=== PATIENT | female | born 1965 | race Caucasian/White ===

== ENCOUNTER 2020-11-29 06:32 | Day surgery (SDC) | payer OTHER ==
[~2020-11-29 06:32] MED LIST: Lactated Ringers 1,000 ML IV SCH
[2020-11-29] MEDS ORDERED: DIPRIVAN 200 MG/20 ML IV ONE ×2 (08:00→08:23)
[2020-11-29 08:59] VITALS: O2SAT 100
[2020-11-29 09:15] VITALS: BP 154/90; PULSE 65
--- NOTE | 2020-11-29 09:52 | OP ---
SURGERY DATE/TIME: 11/29/2020 0808 PREOPERATIVE DIAGNOSES: 1) Screening colonoscopy. 2) History of colon polyps. POSTOPERATIVE DIAGNOSIS: Normal colon. PROCEDURE: Screening colonoscopy. SURGEON: Ivan Chavez M.D. ANESTHESIA: MAC by Chandrakant Fitzgerald CRNA. ESTIMATED BLOOD LOSS: None. SPECIMENS: None. DESCRIPTION OF PROCEDURE: After informed written consent was obtained, the patient was taken to the endoscopy suite. She was placed in left lateral decubitus position. Anesthesia was titrated to desired level of consciousness. Digital rectal exam showed normal sphincter tone and no internal lesions. The scope was inserted into the rectum and sequentially the entire colonic mucosa was traversed. The level of cecum was reached and verified with direct visualization of ileocecal valve. Upon withdrawal careful mucosal inspection revealed no gross abnormalities. Retroflexion showed no internal lesions. The scope was removed and the patient was transferred to the recovery room in good condition.
== END 2020-11-29 09:25 | disposition home or self-care (01) ==
LOC: SDC 06:32
PROVIDERS: ATTEND Family Medicine
DX: Z12.11 Encounter for screening for malignant neoplasm of colon (principal); Z86.010 Personal history of colon polyps
CPT/HCPCS: J2704

== ENCOUNTER 2021-02-05 19:55 | Emergency (ER) | payer OTHER ==
[2021-02-05 20:07] VITALS: PULSE 84; O2SAT 97
[2021-02-05 20:16] VITALS: BP 139/105
[2021-02-05] MEDS ORDERED: XYLOCAINE 2% HCL 20 ML MDV ONE ×2 (20:27→20:28)
[2021-02-05] MEDS ORDERED: XYLOCAINE 2% HCL 20 ML MDV SUBDERMAL ONE (20:40)
--- NOTE | 2021-02-05 20:45 | ERPHSYRPT ---
- History of Present Illness Time Seen by Provider: 02/05/21 20:00 Source: patient Exam Limitations: no limitations Patient Subjective Stated Complaint: Patient states she was chopping onions and cut middle left finger Triage Nursing Assessment: Patient has 1 cm long, 0.1 depth laceration on middle left finger, active bleeding Physician History: 55 years old right-handed dominant female presented in the ER with chief complaint of left third digit middle phalanx laceration prior to arrival while she was cutting onion. There was bleeding initially but stopped with applying pressure. She is complaining of dull aching pain mild to moderate intensity with movements and better with being still. Up-to-date with immunization/tetanus. No difficulty movements of proximal or distal interphalangeal joint. No numbness or tingling in the fingertip. Occurred: just prior to arrival Method of Injury: incised Quality: dullness Severity of Pain-Max: mild Severity of Pain-Current: mild Extremities Pain Location: 3rd finger: left Modifying Factors: Improves With: immobilization. Worsens With: movement Associated Symptoms: none Allergies/Adverse Reactions: No Known Drug Allergies Allergy (Verified 02/05/21 20:09) Home Medications: ALPRAZolam [Xanax 0.25 mg] 1 tab PO DAILY PRN PRN 02/04/16 [History] Metformin HCl 500 mg [Glucophage 500 MG] 1 tab PO BID 02/04/16 [History] Aspirin EC 81 mg [Ecotrin 81 mg] 81 mg PO DAILY 10/30/20 [History] Multivitamin [One-Daily Multi-Vitamin] 1 each PO DAILY 10/30/20 [History] Hx Tetanus, Diphtheria Vaccination/Date Given: Yes Hx Influenza Vaccination/Date Given: No Hx Pneumococcal Vaccination/Date Given: No Immunizations Up to Date: Yes Travel Risk - International Travel Have you traveled outside of the country in past 3 weeks: No - Coronavirus Screening Are you exhibiting any of the following symptoms?: No Close contact with a COVID-19 positive Pt in past 14-21 Days: No - Vaccine Status Have you recieved a Covid-19 vaccination: Yes Back Joiner: Beam. - Vaccination Dates Date of 2cond Vaccination (if applicable): 12/12 - Review of Systems Constitutional: No Symptoms Ears, Nose, & Throat: No Symptoms Respiratory: No Symptoms Cardiac: No Symptoms Genitourinary Symptoms: No Symptoms Musculoskeletal: Injury Skin: Skin Lesions Neurological: No Symptoms Psychological: No Symptoms Endocrine: No Symptoms - Past Medical History Pertinent Past Medical History: Yes Neurological History: Migraines ENT History: No Pertinent History Cardiac History: Other Respiratory History: No Pertinent History Endocrine Medical History: Other Musculoskeletal History: No Pertinent History GI Medical History: No Pertinent History History: No Pertinent History Psycho-Social History: Anxiety Female Reproductive Disorders: Other Other Medical History: hx htn but not for 5 yrs now, hx svt as high school girl no problem since, mild anxiety takes xanax for it, hx infertility issues and was with quads and had cerclauge prodedure on cervix and then miscarried all. had migraines in high school and college, patient is insulin resistant and is on glucophage for that. - Past Surgical History Past Surgical History: Yes Neuro Surgical History: No Pertinent History Cardiac: No Pertinent History Respiratory: No Pertinent History Gastrointestinal: Cholecystectomy Genitourinary: No Pertinent History Musculoskeletal: No Pertinent History Female Surgical History: Other Other Surgical History: cyst removed from fallopian tubes times 2 times, cerclauge procedure on cervix when with quads then had miscarriage and lost all of the quads, node removed off of vocal cords, - Social History Smoking Status: Never smoker Exposure to second hand smoke: No Drug Use: none Patient Lives Alone: Yes - Female History Hx Now: No - Nursing Vital Signs Nursing Vital Signs: Initial Vital Signs Temperature 97.4 F 02/05/21 20:01 Pulse Rate 84 02/05/21 20:01 Blood Pressure 139/105 02/05/21 20:01 O2 Sat by Pulse Oximetry 97 02/05/21 20:01 Pain Scale Pain Intensity 0 - Physical Exam General Appearance: no apparent distress, alert, anxiety Neck Exam: normal inspection, supple, full range of motion Cardiovascular/Respiratory Exam: normal breath sounds, regular rate/rhythm Elbow/Forearm Exam: normal inspection, no evidence of injury, normal ROM Wrist Exam: normal inspection, no evidence of injury, normal ROM Hand Exam: normal ROM, laceration (1.5 cm middle phalanx lateral aspect superficial with no active spurting or oozing. Intact distal neurovascular), soft tissue tenderness Neuro/Tendon Exam: normal sensation, normal motor functions, normal tendon functions Mental Status Exam: alert, oriented x 3 Skin Exam: normal color SpO2 Interpretation: normal SpO2: 97 O2 Delivery: Room Air Procedures - Laceration/Wound Repair Left Finger Time of Procedure: 20:35 Wound Location: Left Wound Length (cm): 1.5 Wound's Depth, Shape: superficial Wound Explored: clean Irrigated: Yes Hibiclens Prep: Yes Anesthesia: 2% Lidocaine Volume Anesthetic (ccs): 1.5 Wound Repaired With: sutures Suture Size/Type: 4-0 Number of Sutures: 3 Sterile Dressing Applied?: Yes Ordered Tests: Medication Summary Discontinued Medications Generic Name Dose Route Start Last Admin Trade Name Katie PRN Reason Stop Dose Admin Lidocaine HCl Confirm 02/05/21 20:27 Xylocaine 2% Hcl 20 Ml Mdv Administered 02/05/21 20:28 Dose 1 ml .ROUTE .STK-MED ONE Lidocaine HCl Confirm 02/05/21 20:28 Xylocaine 2% Hcl 20 Ml Mdv Administered 02/05/21 20:29 Dose 4 ml .ROUTE .STK-MED ONE - Progress Progress: improved Progress Note: 02/05/21 20:43 I offered pain medication which she refused. Up-to-date with tetanus. Laceration is repaired. Suture removal in 10-14 days. Tylenol/ibuprofen as needed for pain. Discuss signs symptoms of infection needing return to ER which he seems understanding. Counseled pt/family regarding: diagnosis, need for follow-up - Departure Departure Disposition: Home Clinical Impression: Finger laceration Qualifiers: Encounter type: initial encounter Finger: middle finger Damage to nail status: without damage Foreign body presence: without foreign body Laterality: left Qualified Code(s): S61.213A - Laceration without foreign body of left middle finger without damage to nail, initial encounter Condition: Stable Critical Care Time: No Referrals: CORA AQUINO [Primary Care Provider] - Follow Up with PCP/3 days Instructions: Wound Care (DC), Laceration Repair With Stitches (DC) Additional Instructions: Keep it clean. Use Dial soap. Apply bacitracin/triple antibiotic ointment twice a day. Take Tylenol/ibuprofen as needed for pain. Follow-up with primary care physician for reevaluation and suture removal in 10 to 14 days. Avoid exertional activities with involved hand/finger. Follow-up with your doctor or return to ER for increased swelling pain redness discharge/fever chills etc.
[2021-02-05] MEDS ORDERED: BACIGUENT PACKET ONE (20:51)
[2021-02-05] MEDS ORDERED: BACIGUENT PACKET TP ONE (20:57)
== END 2021-02-05 20:59 | disposition home or self-care (01) ==
LOC: ED 19:55
DX: S61.213A Laceration without foreign body of left middle finger without damage to nail, initial encounter (principal); W26.0XXA Contact with knife, initial encounter; Y93.G1 Activity, food preparation and clean up; Y92.89 Other specified places as the place of occurrence of the external cause
CPT/HCPCS: 12001; 99283; A9270-GY